=== PATIENT | female | born 1975 | race American Indian/Alaskan Native ===

== ENCOUNTER 2019-07-19 21:35 | Emergency (ER) | payer BC ==
[2019-07-19 22:50] VITALS: BP 128/85
--- NOTE | 2019-07-19 22:51 | Emergency Department Report ---
Chief Complaint: High BP Stated Complaint: [facility] BP Time Seen by Provider: 07/19/19 22:26 - HPI History of Present Illness: Patient is a 44-year-old female presents emergency room for a blood pressure check. She states that for the last 3 days her blood pressure has been elevated for her. She states that she went to her primary care physician for a cold and her blood pressure was 150/90. She states that her blood pressure is usually 120s over 80s. She denies any symptoms at all currently related to blood pressure. She denies any headache, vision changes, numbness, weakness, chest pain, shortness of breath at all currently. Blood pressure in triage is 157/85 repeat BP is 128/85 manager financial services [id number] used for [place] interpretation Discussed in detail with patient lifestyle modifications Discussed to increase her water intake, decrease her sodium intake significantly, weight loss, incorporate daily exercise Advised patient to keep a blood pressure log and take her blood pressure three times a day Advised for patient to follow back up with her primary care physician Discussed strict return precautions with patient Lifestyle modifications are recommended for this mild elevation in blood pressure and to have serial repeat blood pressures with a primary care physician Patient is asymptomatic at this time Medical screening examination performed and there is no threat to life or limb at this time - Exam Vital Signs: Vital Signs 07/19/19 21:56 Temperature 98.5 F Pulse Rate 88 Respiratory 20 Rate Blood Pressure 157/85 O2 Sat by Pulse 99 Oximetry MSE screening note: Focused history and physical exam performed. ED Disposition for MSE Clinical Impression: Encounter for medical screening examination Disposition: [facility] SCREENING EXAM-LEFT Is pt being admited?: No Does the pt Need Aspirin: No Condition: Stable Additional Instructions: Please keep a blood pressure log and take your blood pressure 3 times a day. Please incorporate 30 minutes of daily exercise. Please increase your water intake. Please significantly decrease your sodium intake. Follow-up with a primary care doctor. Return to the emergency room for any new or worsening symptoms including but not limited to vision changes, numbness, weakness, chest pain, shortness of breath, worsening headache, etc. Por favor, mantenga un registro de presin arterial y tome deleon presin arterial 3 veces al da. Por favor, incorpore 30 minutos de ejercicio diario. Por favor, aumente deleon ingesta de agua. Por favor, disminuya significativamente deleon ingesta de sodio. Seguimiento con un mdico de atencin primaria. Regrese a la omar de emergencias para cualquier sntoma nuevo o que empeore incluyendo martin no limitado a cambios en la visin, entumecimiento, debilidad, dolor en el pecho, dificultad para respirar, empeoramiento del dolor de dave, etc. Referrals: PRIMARY CARE,MD [Primary Care Provider] - 2-3 Days Time of Disposition: 22:50 Print Language: [id number]
== END 2019-07-19 22:55 | disposition left against medical advice (07) ==
LOC: ED 21:35
DX: R03.0 Elevated blood-pressure reading, without diagnosis of hypertension (principal)
CPT/HCPCS: 99282